=== PATIENT | female | born 1950 | race Caucasian/White ===

== ENCOUNTER 2024-05-11 08:40 | Observation (INO) | payer MEDICARE, BC ==
[2024-05-03 16:01] LABS: BASOPHILS % (AUTO) 0.9 % (0-1); EOSINOPHILS # (AUTO) 0.2 X10'3 (0-0.9); EOSINOPHILS % (AUTO) 5.1 % (0-6); LYMPHOCYTES # (AUTO) 1.6 X10'3 (1.1-4.8); LYMPHOCYTES % (AUTO) 35.6 % (21-51); MEAN CORPUSCULAR HEMOGLOBIN 29.8 PG (27.0-31.0); MEAN CORPUSCULAR VOLUME 85.2 FL (78-98); MEAN PLATELET VOLUME 8.4 FL (7.4-10.4); MONOCYTES # (AUTO) 0.4 X10'3 (0-0.9); NEUTROPHILS # (AUTO) 2.3 X10'3 (1.8-7.7); NEUTROPHILS % (AUTO) 49.4 % (42-75); PRE OP HEMATOCRIT 39.8 % (35.0-45.0); PRE OP HEMOGLOBIN 13.9 g/dL (12.0-16.0); PRE OP PLATELET COUNT 245 X10'3 (140-440); PRE OP WHITE BLOOD COUNT 4.6 10'3 (4.8-10.8); RED BLOOD COUNT 4.67 X10'6 (4.20-5.60); RED CELL DISTRIBUTION WIDTH 12.9 % (11.5-14.5)
[2024-05-03 16:24] LABS: ALBUMIN 3.7 G/DL (3.4-5.0); ALBUMIN/GLOBULIN RATIO 1.1 (1.1-1.5); ALKALINE PHOSPHATASE 87 IU/L (46-116); BLOOD UREA NITROGEN 18 MG/DL (7-18); BUN/CREATININE RATIO 38.3 (10.0-20.0); CALCIUM 9.3 MG/DL (8.5-10.1); CHLORIDE 106 MMOL/L (99-107); CREATININE 0.47 MG/DL (0.40-0.90); PRE OP ALT 23 U/L (30-65); PRE OP ANION GAP 5 (8-16); PRE OP AST 12 U/L (10-37); PRE OP BILIRUB, TOTAL 0.3 MG/DL (0.0-1.0); PRE OP GLUCOSE 107 MG/DL (70-104); PRE OP POTASSIUM 3.6 MMOL/L (3.4-5.1); PRE OP SODIUM 144 MMOL/L (135-145); TOTAL CARBON DIOXIDE 33.1 MMOL/L (24-32); TOTAL PROTEIN 7.1 G/DL (6.4-8.2); eGFR > 90 ML/MIN
[~2024-05-11] VITALS: Ht 160 cm; Wt 72.1 kg
[2024-05-11] VITALS (24 sets, daily range): BP systolic 128–178; BP diastolic 60–92; PULSE 84–97; RESP 10–16; TEMP 97.9–99; O2SAT 90–100
[2024-05-11] MEDS: ceFAZolin 2gm in dextrose, iso 50 ML IV ONE (05:30)
[~2024-05-11 08:40] MED LIST: NO HOME MEDS
[2024-05-11] MEDS: famotidine 20mg tablet PO ONE (09:22)
[2024-05-11] MEDS: ringers solution, lacted 1,000 ML IV SCH (09:24)
[2024-05-11] MEDS ORDERED: clindamycin phosphate 40gm vag cream ONE (11:03)
[2024-05-11] MEDS ORDERED: BUPIVAcaine/PF 2.5mg/ml (0.25%) 10ml vial ONE (11:04)
[2024-05-11] MEDS ORDERED: BUPIVAcaine 2.5mg/ml inj 50ml vial (contains preservative) ONE (11:04)
[2024-05-11] MEDS ORDERED: vasoPRESSIN 20 units/ml inj. ONE (11:04)
[2024-05-11 12:26] LABS: BILIRUBIN,URINE NEGATIVE (Neg); CLARITY,URINE SLIGHTLY CLOUDY (Clear); COLOR,URINE YELLOW (Yellow); GLUCOSE, URINE NEGATIVE (Neg); KETONES,URINE NEGATIVE (Neg); LEUKOCYTE ESTERASE ,URINE LARGE (Neg); NITRITES, URINE NEGATIVE (Neg); OCCULT BLOOD,URINE TRACE-INTACT (Neg); PROTEIN,URINE NEGATIVE (Neg); UROBILINOGEN,URINE 0.2 E.U/dL (0.2-1.0)
[2024-05-11] MEDS ORDERED: fentaNYL/PF 50MCG/1 ML 2ML syringe ONE (12:28)
[2024-05-11] MEDS ORDERED: sevoflurane 250ml liquid IH ONE (12:30)
[2024-05-11 12:31] LABS: UA COLLECTION TYPE CLN CATCH MIDSTREAM
[2024-05-11 12:36] LABS: BACTERIA,URINE 1+ /HPF (Neg); RENAL CELLS, URINE FEW /HPF; SQUAMOUS EPITHELIAL CELL,UR MODERATE /LPF (FEW); TRANSITIONAL EPI CELLS,URINE FEW /HPF; WBC,URINE 20-30 /HPF (0-4)
[2024-05-11] MEDS ORDERED: HYDROmorphone 1 mg/ml syringe ONE (14:38)
[2024-05-11] MEDS ORDERED: ketorolac trometh 30MG/ML vial 30 MG/ML VIAL ONE (15:10)
[2024-05-11] MEDS ORDERED: propofol inj 20 ML IV ONE (15:10)
[2024-05-11] MEDS ORDERED: ondansetron/PF 4mg/2ml inj ONE (15:10)
[2024-05-11] MEDS ORDERED: meperidine/PF 25mg/ml syringe IV PRN ×3 (15:20)
[2024-05-11] MEDS ORDERED: morphine 2 MG/ML inj. syringe IV PRN (15:20)
[2024-05-11] MEDS ORDERED: labetalol 20mg/4ml (5mg/ml) syringe IV PRN (15:20)
[2024-05-11] MEDS ORDERED: morphine 4 MG/ML inj SYRINge IV PRN (15:20)
[2024-05-11] MEDS ORDERED: ondansetron/PF 4mg/2ml inj IV PRN ×2 (15:20→19:55)
[2024-05-11] MEDS ORDERED: proCHLORperazine 10 MG/2 ml inj IV PRN (15:20)
[2024-05-11] MEDS ORDERED: enalaprilat 1.25mg/ml 2ml vial IV PRN (15:20)
[2024-05-11] MEDS: clindamycin phosphate 40gm vag cream VG ONE (16:18)
[2024-05-11] MEDS ORDERED: HYDROcodone/acetaminophen 10/325mg tab PO PRN (19:55)
[2024-05-11] MEDS ORDERED: docusate sod 250mg capsule PO SCH (20:00)
[2024-05-11] MEDS ORDERED: metoclopramide 5 mg/ml inj IV PRN (20:10)
[2024-05-11] MEDS ORDERED: ketorolac trometh 15mg/ml vial 15 MG/ML ML IV PRN (20:10)
[2024-05-11] MEDS: HYDROcodone/acetaminophen 10/325mg tab PO PRN (22:28)
[2024-05-11] MEDS: docusate sod 100mg capsule PO SCH (22:28)
[2024-05-12] MEDS: ringers solution, lacted 1,000 ML IV SCH ×2 (03:42→03:45)
[2024-05-12 04:59] LABS: BASOPHILS % (AUTO) 0.5 % (0-1); EOSINOPHILS % (AUTO) 0.2 % (0-6); HEMATOCRIT 38.7 % (35.0-45.0); HEMOGLOBIN 13.2 g/dl (12.0-16.0); LYMPHOCYTES # (AUTO) 1.2 X10'3 (1.1-4.8); LYMPHOCYTES % (AUTO) 19.6 % (21-51); MEAN CORPUSCULAR HEMOGLOBIN 29.4 PG (27.0-31.0); MEAN CORPUSCULAR HGB CONC 34.2 g/dL (33.0-36.5); MEAN PLATELET VOLUME 8.5 FL (7.4-10.4); MONOCYTES # (AUTO) 0.6 X10'3 (0-0.9); MONOCYTES % (AUTO) 9.8 % (2-12); NEUTROPHILS # (AUTO) 4.4 X10'3 (1.8-7.7); NEUTROPHILS % (AUTO) 69.9 % (42-75); PLATELET COUNT 225 X10'3 (140-440); RED CELL DISTRIBUTION WIDTH 12.9 % (11.5-14.5); WHITE BLOOD COUNT 6.3 X10'3 (4.5-11.0)
[2024-05-12 05:05] LABS: ALBUMIN 3.2 G/DL (3.4-5.0); ANION GAP 6 (8-16); BLOOD UREA NITROGEN 10 MG/DL (7-18); BUN/CREATININE RATIO 19.2 (10.0-20.0); CALCIUM 8.9 MG/DL (8.5-10.1); CHLORIDE 105 MMOL/L (99-107); CREATININE 0.52 MG/DL (0.40-0.90); GLUCOSE 101 MG/DL (70-104); POTASSIUM 3.8 MMOL/L (3.5-5.1); SODIUM 140 MMOL/L (135-145); TOTAL CARBON DIOXIDE 29.2 MMOL/L (24-32); eCRCL 77 ML/MIN; eGFR > 90 ML/MIN
[2024-05-12 06:00] VITALS: BP 138/75; PULSE 68; RESP 16; TEMP 97.8; O2SAT 99
== END 2024-05-12 10:34 | disposition home or self-care (01) ==
LOC: PAS 08:40 → SUR 3N 20:07
PROVIDERS: ADMIT Obstetrics & Gynecology Obstetrics; ATTEND Obstetrics & Gynecology Obstetrics
DX: N81.3 Complete uterovaginal prolapse (principal); K66.0 Peritoneal adhesions (postprocedural) (postinfection); D25.9 Leiomyoma of uterus, unspecified; R79.1 Abnormal coagulation profile; Z79.899 Other long term (current) drug therapy; Z98.890 Other specified postprocedural states
CPT/HCPCS: 58552; 71046; 80048; 80053; 81001; 82948; 85610; 85730; 86885; 86900; 86901; 87077; 87186; A4615; A4618; A7000; G0378; J0690; J3490; J7120; 36415; 85025; 87081; 87088; 88307; A4314; J1100; J1171; J1885; J2003; J2405; J2704; J3010